=== PATIENT | female | born 1945 | race Caucasian/White ===

== ENCOUNTER 2023-01-08 14:04 | Outpatient (CLI) | payer MEDICARE | END 2023-01-08 14:05 | disposition home or self-care (01) | LOC: CSHMRI 14:04 | PROVIDERS: ATTEND Family Medicine | DX: M96.1 Postlaminectomy syndrome, not elsewhere classified (principal); M47.812 Spondylosis without myelopathy or radiculopathy, cervical region; Z98.890 Other specified postprocedural states | CPT/HCPCS: 72040; 72141 ==

== ENCOUNTER 2023-05-17 13:40 | Outpatient (CLI) | payer MEDICARE | END 2023-05-17 13:41 | disposition home or self-care (01) | LOC: CSHMRI 13:40 | PROVIDERS: ATTEND Neurological Surgery | DX: Q76.49 Other congenital malformations of spine, not associated with scoliosis (principal); M47.816 Spondylosis without myelopathy or radiculopathy, lumbar region; Z98.1 Arthrodesis status; M48.061 Spinal stenosis, lumbar region without neurogenic claudication | CPT/HCPCS: 72120; 72148 ==

== ENCOUNTER 2023-07-23 12:33 | Emergency (ER) | payer BC, MEDICARE ==
[2023-07-23] MEDS ORDERED: Dexamethasone 10 MG/ML VIAL ONE (13:59)
== END 2023-07-23 14:24 | disposition home or self-care (01) ==
LOC: CSHERS 12:33
DX: M54.41 Lumbago with sciatica, right side (principal); E03.9 Hypothyroidism, unspecified; E78.5 Hyperlipidemia, unspecified; I10 Essential (primary) hypertension
CPT/HCPCS: 96372; 99283; J1100